=== PATIENT | female | born 1990 | race Caucasian/White ===

== ENCOUNTER → 2017-12-22 | Outpatient (CLI) | payer OTHER ==
--- NOTE | 2017-12-22 13:41 | KCIC ---
Pelvic ultrasound Clinical Indication: Abnormal uterine bleeding.. . Uterus: * Size (in centimeters): 7.8 long by 3.4 AP. Appearance: No evidence of mass * Endometrium: 2 mm endometrial stripe thickness. Uniform appearance. Right ovary: * Size: 3.9 cm long axis. * Blood flow: Intact * Appearance: Cyst measuring 2.2 cm. Left ovary: * Size: 2.7 cm long axis. * Blood flow: Intact * Appearance: No significant mass. Free fluid: None visualized IMPRESSION: Right ovarian cyst measuring 2.2 cm. Otherwise unremarkable exam. Electronically signed by: Michael López MD (12/22/2017 1:38 PM) [facility]
== END | disposition home or self-care (01) ==
LOC: KCIC US 12:18
PROVIDERS: ATTEND Obstetrics & Gynecology
DX: N83.201 Unspecified ovarian cyst, right side (principal)
CPT/HCPCS: 76856